=== PATIENT | female | born 1995 | race Caucasian/White ===

== ENCOUNTER 2016-11-12 11:07 | Emergency (ER) | payer OTHER ==
[~2016-11-12] VITALS: Ht 162.6 cm; Wt 117.9 kg
[~2016-11-12 11:07] MED LIST: ACETAMINOPHEN500 M4 PO; ARIPIPRAZOLE5 M1 PO; CIPRO 500MG TA500 MG PO; CYCLOBENZAPRINE5 M2 PO; EXCEDRIN TENSI1 EACH PO; FIORICET 325 MG1 TAB PO; FIORICET 50-301 EACH PO; FLEXERIL10 MG PO; FLUOXETINE HCL20 M2 PO; FLUTICASONE PRO16 GM NASB; HYDROXYZINE HCL50 MG PO; IBUPROFEN800 M1 PO; MEDROL DOSEPAK1 PAC PO; MEDROL4 M2 PO; MIRENA1 EACH; MOBIC15 M1 PO; MOTRIN 600 MG600 MG PO; NEXIUM40 M1 PO; NEXPLANON68 MG SC; NORCO 325 MG-51 TAB PO; PREDNISONE 20MG20 MG PO; PYRIDIUM200 MG PO; TRAMADOL HCL50 M1 PO; TRAMADOL50 MG PO; VERAMYST27.5 MCG/A; VICODIN 5-3001 EACH PO; VICODIN5-300 PO; VISTARIL25 MG PO; VISTARIL50 MG PO; ZOFRAN ODT4 MG PO; ZOFRAN4 M2 PO; [UNRECOGNIZED DRUG - CODE]
--- NOTE | 2016-11-12 12:55 | ED INFLUENZA/URI COMPLAINT ---
History of Present Illness General Chief Complaint: General Adult Stated Complaint: FLU SYMPTOMS; SENT FROM PRIMARY Source: patient, family, old records Exam Limitations: no limitations Vital Signs & Intake/Output Vital Signs & Intake/Output Vital Signs Date Time Temp Pulse Resp B/P Pulse O2 O2 Flow FiO2 Ox Delivery Rate 11/12 1427 100.2 80 22 112/64 97 Room Air 11/12 1337 100.6 98 18 100/52 95 Room Air 11/12 1232 102.0 95 20 130/60 11/12 1125 100.8 11/12 1117 100.8 156 20 122/70 100 Room Air Allergies Coded Allergies: cashew nut (Severe, ANAPHALACTIC - JUST CASHEW BUTTER CAUSES ANAPHYLAXIS ) milk (Severe, MOUTH BLISTERS 07/30/16) Sulfa (Sulfonamide Antibiotics) (Intermediate, SWELLING 07/30/16) metoclopramide (From REGLAN) (Intermediate, HIVES AND TWITCHING 07/30/16) naproxen (Intermediate, SWELLING 07/30/16) Reconcile Medications Aripiprazole 5 MG TABLET 1 TAB PO DAILY MENTAL HEALTH (Reported) Ergocalciferol (Vitamin D2) (Vitamin D2) 50,000 UNIT CAPSULE 1 CAP PO QTUES SUPPLEMENT (Reported) Esomeprazole (Nexium) 40 MG CAPSULE.DR 1 CAP PO DAILY GASTRIC ULCERS ( Reported) Ferrous Sulfate 325 MG (65 MG IRON) TABLET 1 TAB PO DAILY SUPPLEMENT ( Reported) Fluoxetine HCl 20 MG CAPSULE 1 CAP PO DAILY MENTAL HEALTH (Reported) Hydrocodone/Acetaminophen (Vicodin 5-300 MG Tablet) 5 MG-300 MG TABLET 1 TAB PO PRN TMJ (Reported) Ibuprofen 800 MG TABLET 1 TAB PO PRN HEADACHES (Reported) Ibuprofen 600 MG TABLET 1 TAB PO Q6PRN PRN pain, fever with food Meloxicam 15 MG TABLET 1 TAB PO TMJ (Reported) Ondansetron (Zofran Odt) 4 MG TAB.RAPDIS 1 TAB SL TID PRN nausea Oseltamivir Phosphate (Tamiflu) 75 MG CAPSULE 1 CAP PO BID influenza Triage Note: C/O COUGH WITH ACHING ALL OVER, FEVER, CHILLS, SINCE YESTERDAY. STATES HER SON WAS SEEN HERE YESTERDAY, DXD WITH FLU AND PNEUMONIA. Triage Nurses Notes Reviewed? yes Onset: 1 day Duration: day(s):, constant, continues in ED Timing: recent history Severity: moderate Prior Episodes/Possible Cause: illness exposure No Modifying Factors: none LMP (ages 10-50): unknown : No Patient currently breastfeeds: No HPI: Son ill with influenza over the weekend. 1 day prior to admission patient developed fever chills decreased appetite nausea vomiting bodyaches palpitations. She denies chest pain abdominal pain dysuria rash bleeding. Past History Travel History Traveled to [place] past 21 day No Medical History Any Pertinent Medical History? 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 Yes Review of Systems Review of Systems Constitutional: Reports: see HPI, chills, fever, malaise, weakness. EENTM: Reports: see HPI, nasal congestion. Respiratory: Reports: see HPI, cough. Cardiovascular: Reports: see HPI, palpitations. GI: Reports: see HPI, nausea, vomiting. Genitourinary: Reports: no symptoms. Musculoskeletal: Reports: no symptoms. Skin: Reports: no symptoms. Neurological/Psychological: Reports: no symptoms. Hematologic/Endocrine: Reports: no symptoms. Immunologic/Allergic: Reports: no symptoms. All Other Systems: Reviewed and Negative Physical Exam Physical Exam General Appearance: well developed/nourished, alert, awake, anxious, moderate distress Head: atraumatic, normal appearance Eyes: Bilateral: normal appearance, PERRL, EOMI. Ears, Nose, Throat: nasal congestion, dry mucous membranes Neck: normal inspection, supple, full range of motion, trachea midline, lymphadenopathy (R), lymphadenopathy (L) Respiratory: normal breath sounds, chest non-tender, no respiratory distress, quiet respiration, lungs clear Cardiovascular: regular rate/rhythm, normal peripheral pulses, tachycardia, norml femoral pulses equa Peripheral Pulses: 4+ carotid (R), 4+ carotid (L) Gastrointestinal: normal bowel sounds, soft, non-tender, no organomegaly Back: normal inspection, normal range of motion Extremities: normal inspection, normal capillary refill, normal range of motion, no edema Neurologic/Psych: no motor/sensory deficits, awake, alert, oriented x 3, normal gait, normal mood/affect, 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 Skin: intact, normal color, warm/dry Lymphatic: adenopathy Core Measures Severe Sepsis Present: No Septic Shock Present: No Progress Differential Diagnosis: influenza, otitis, pneumonia, pharyngitis Plan of Care: Orders Procedure Date/time Status EKG 11/12 1215 Active RAPID VIRAL INFLUENZA A 11/12 1119 Complete VIRAL CULTURE 11/12 1119 Active Laboratory Tests 11/12/16 1119: Virus Culture Pending Initial ED EKG: normal axis, normal intervals, normal p-waves, normal QRS complex, normal sinus rhythm, no ST T wave changes Departure Departure Time of Disposition: 1430 Disposition: HOME OR SELF CARE Condition: Stable Clinical Impression Primary Impression: Influenza Referrals: BLANCHE MOREJON (PCP/Family) Departure Forms: Customer Survey General Discharge Information Prescriptions: Current Visit Scripts Oseltamivir Phosphate (Tamiflu) 1 CAP PO BID #10 CAP Ondansetron (Zofran Odt) 1 TAB SL TID PRN nausea #15 TAB Ibuprofen 1 TAB PO Q6PRN PRN pain, fever #50 TAB with food
[2016-11-12] MEDS ORDERED: VITAMIN D250000 UNIT PO (13:16)
[2016-11-12] MEDS ORDERED: FERROUS SULFAT325 M3 PO (13:17)
[2016-11-12] MEDS ORDERED: IBUPROFEN800 M1 PO (13:19)
[2016-11-12] MEDS ORDERED: VICODIN 5-3001 EACH PO (13:19)
[2016-11-12] MEDS ORDERED: MELOXICAM15 M1 PO (13:19)
[2016-11-12 14:27] VITALS: BP 112/64
[2016-11-12] MEDS ORDERED: TAMIFLU75 M1 PO (14:31)
[2016-11-12] MEDS ORDERED: ZOFRAN ODT4 M1 SL (14:31)
[2016-11-12] MEDS ORDERED: IBUPROFEN600 M1 PO (14:31)
== END 2016-11-12 14:54 ==
LOC: ERH 11:07
DX: J11.1 Influenza due to unidentified influenza virus with other respiratory manifestations (principal)
CPT/HCPCS: 87804; 87804-59; 93005; 93010; 96361; 96374; 96375; J1885; J2405

== ENCOUNTER 2016-12-29 18:29 | Emergency (ER) | payer OTHER ==
[~2016-12-29] VITALS: Ht 162.6 cm; Wt 120.2 kg
[~2016-12-29 18:29] MED LIST changes: +FERROUS SULFAT325 M3 PO; +IBUPROFEN600 M1 PO; +MELOXICAM15 M1 PO; +TAMIFLU75 M1 PO; +VITAMIN D250000 UNIT PO; +ZOFRAN ODT4 M1 SL
--- NOTE | 2016-12-29 19:38 | ED GENERAL ADULT ---
History of Present Illness General Chief Complaint: General Adult Stated Complaint: RIGHT SHOULDER PAIN, FLANK PAIN, 3 WKS PREG Source: patient Exam Limitations: no limitations Vital Signs & Intake/Output Vital Signs & Intake/Output Vital Signs Date Time Temp Pulse Resp B/P Pulse O2 O2 Flow FiO2 Ox Delivery Rate 12/30 2203 96.7 80 18 134/57 99 Room Air 12/29 2041 98.3 88 16 149/84 97 Room Air 12/29 2033 Room Air 12/29 1841 97.1 118 20 124/86 98 Room Air ED Intake and Output 12/30 0000 12/29 1200 Intake Total Output Total Balance Patient 265 lb Weight Allergies Coded Allergies: cashew nut (Severe, ANAPHALACTIC - JUST CASHEW BUTTER CAUSES ANAPHYLAXIS ) milk (Severe, MOUTH BLISTERS 12/29/16) Sulfa (Sulfonamide Antibiotics) (Intermediate, SWELLING 12/29/16) metoclopramide (From REGLAN) (Intermediate, HIVES AND TWITCHING 12/29/16) naproxen (Intermediate, SWELLING 12/29/16) Reconcile Medications Aripiprazole 5 MG TABLET 1 TAB PO DAILY MENTAL HEALTH (Reported) Bupropion HCl (Bupropion XL) 150 MG TAB.ER.24H 1 TAB PO DAILY MENTAL HEALTH ( Reported) Doxylamine/Pyridoxine HCl (You Dr 10-10 MG Tablet) 10 MG-10 MG TABLET.DR 2 TAB PO QPM PRN NAUSEA Ergocalciferol (Vitamin D2) (Vitamin D2) 50,000 UNIT CAPSULE 1 CAP PO QTUES SUPPLEMENT (Reported) Esomeprazole (Nexium) 40 MG CAPSULE.DR 1 CAP PO DAILY GASTRIC ULCERS ( Reported) Ferrous Sulfate 325 MG (65 MG IRON) TABLET 1 TAB PO DAILY SUPPLEMENT ( Reported) Pnv95/Ferrous Fumarate/FA ( Tablet) 28 MG IRON-800 MCG TABLET 1 TAB PO DAILY SUPPLEMENT (Reported) Triage Note: TRIAGE: PT TO ER C/C R SHOULDER PAIN AND L BACK/FLANK PAIN. ONSET TODAY. CONSTANT SINCE ONSET. +N/+V/-D. LNBM THIS MORNING. REPORTS INCREASED URINARY FREQUENCY X 2 WKS AND DYSURIA THAT STARTED TODAY. LMP 12/04/2016. HAD HOME TEST DONE FRIDAY WHICH WAS POSITIVE. . PLANS TO CALL DR GRIMM OFFICE TOMORROW. Triage Nurses Notes Reviewed? yes Onset: Gradual Duration: constant Timing: single episode today Injury Environment: home Severity: moderate Severity Numbers: 5 : Yes Patient currently breastfeeds: No HPI: Patient is a 21-year-old female who presents emergency room stating that she has had a nonproductive cough for the past 3 days and today she woke up with right- sided anterior chest wall pain that is made worse with deep INHILATION AND upper extremity movements and coughing. Patient denies any fever chills shortness of breath or hemoptysis sore throat. Patient also states that she woke up this morning and has had left-sided paralumbar muscular back pain that is made worse with LUMBAR spine movements and lower extremity movements. Patient took ibuprofen with minimal relief of symptoms. Patient did take home test recently LAST WEEK showing test to confirm in positive , patient took these tests because she was having mild nausea and vomiting episodes last week and was concerned of .. Patient currently denies any fevers chills leg swelling nausea vomiting abdominal pain dysuria hematuria vaginal bleeding or vaginal discharge. Patient is able tolerate by mouth Denies any passage of tissue Denies any history of DVT PE hemoptysis leg swelling recent travel recent surgery or oral contraceptive use (KHAI HOOVER) Past History Travel History Traveled to [place] past 21 day No Medical History Any Pertinent Medical History? 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 No (KHAI HOOVER) Review of Systems Review of Systems Constitutional: Reports: no symptoms. EENTM: Reports: no symptoms. Respiratory: Reports: see HPI, cough. Denies: hemoptysis, short of breath. Cardiovascular: Reports: see HPI, chest pain. GI: Reports: no symptoms, nausea. Denies: abdominal pain. Genitourinary: Reports: no symptoms. Musculoskeletal: Reports: see HPI, back pain. Skin: Reports: no symptoms. Neurological/Psychological: Reports: no symptoms. Hematologic/Endocrine: Reports: no symptoms. Immunologic/Allergic: Reports: no symptoms. All Other Systems: Reviewed and Negative (KHAI HOOVER) Physical Exam Physical Exam General Appearance: no apparent distress, obese Comments: HEENT: Normal EENT exam, extraocular motion intact, no nystagmus. Pupils equally round and reactive to light and accommodation. Nose is atraumatic. External auditory canal and Tympanic membranes clear. Pharynx normal. No swelling or edema. Neck: Supple, no lymphadenopathy, normal range of motion without pain or tenderness Back: Normal inspection full active range of motion noted with pain to the left lateral aspect of her back. Moderate point tenderness noted to lateral paralumbar muscular region, no central spinous tenderness Cardiovascular: Regular rate and rhythms no murmurs rubs or gallops, normal JVP Respiratory: right anterior chest wall point tenderness noted normal inspectionespiratory distress.breath sounds clear to auscultation bilaterally Abdomen: Soft, nontender nondistended, no appreciable organomegaly. Normal bowel sounds. No ascites Extremity: No edema, no calf tenderness to palpation, normal and equal pulses. Bilateral upper extremity and lower extremity myotomes dermatomes intact Neuro: Alert oriented x3, motor sensory normal, Skin: No appreciable rash on exposed skin, skin is warm and dry. Psych: Mood and affect is normal, memory and judgment is normal. Core Measures ACS in differential dx? No CVA/TIA Diagnosis: No Severe Sepsis Present: No Septic Shock Present: No (KHAI HOOVER) Progress Differential Diagnoses I considered the following diagnoses in my evaluation of the patient: [ , ectopic , threatened , PE, DVT, costochondritis, PTX, lumbar strain, kidney stone, appendicitis,] Plan of Care: Orders Procedure Date/time Status D-DIMER 12/29 2052 Complete Add-on Test (ER Only) 12/29 2030 Active HUMAN BETA HCG TITRE 12/29 1957 Complete HUMAN BETA HCG SCREEN 12/29 1937 Complete URINE 12/29 1852 Complete URINALYSIS 12/29 1852 Complete Laboratory Tests 12/29/16 2100: D-Dimer < 200 12/29/161957: Beta HCG, Quant 110.8, Total Beta HCG POSITIVE 12/29/161853: Urine Color YEL, Urine Clarity CLEAR, Urine pH 6.5, Ur Specific Williams 1.010, Urine Protein NEG, Urine Ketones NEG, Urine Nitrite NEG, Urine Bilirubin NEG, Urine Urobilinogen 0.2, Ur Leukocyte Esterase TRACE H, Ur Microscopic SEDIMENT EXAMINED, Urine RBC RARE, Urine WBC 3-5 H, Ur Epithelial Cells MANY H, Urine Hemoglobin NEG, Urine Glucose NEG, Urine Test NEGATIVE PERC ZERO Patient has reproducible chest wall point tenderness on exam and reproducible left-sided lateral muscular point tenderness with lumbar spine movements. No CVA tenderness no abdominal pain no respiratory distress CLEAR lungs auscultation Patient currently is in no apparent distress however did have negative urine however. Positive beta hCG screen. Patient has nontender abdomen. Patient had negative d-dimer essentially ruling out pulmonary embolism. Due to history of present illness and exam findings patient has reproducible pain upon deep inhalation and superficial point tenderness to the right chest wall and left lateral muscular back region. I suspect costochondritis and lumbar strain patient was given a prescription of a repeat beta hCG titer in 2 days and patient will follow-up with her established DRILLING MANAGER Dr. Orozco this week There is no concern at this time of ectopic or appendicitis. No concerns of DVT or PE Discussed disposition plan with Dr. Oliveros who agrees (KHAI HOOVER) Initial ED EKG: none (KHAI HOOVER) Departure Departure Disposition: HOME OR SELF CARE Condition: Stable Clinical Impression Primary Impression: Chest wall pain Secondary Impressions: Low back pain Referrals: BLANCHE MOREJON (PCP/Family) Additional Instructions: As discussed begin icing the area directly 20 minutes every 2 hours. BEGIN Over -the-counter Tylenol for pain and inflammation.. If no better in 5 days follow- up with your primary care doctor. Follow-up tomorrow AND make an appointment for your DRILLING MANAGER Dr. Orozco. In 2 days please go to your local lab facility to receive a second repeat beta HCG Quant this will be sent your primary DRILLING MANAGER.. If symptoms worsen return to emergency room. BEGIN The prescription OF DICLEGIS as directed for nausea. Prescriptions are waiting at [facility] pharmacy Departure Forms: Customer Survey General Discharge Information Prescriptions: Current Visit Scripts Doxylamine/Pyridoxine HCl (Diclegis Dr 10-10 MG Tablet) 2 TAB PO QPM PRN NAUSEA #20 TAB (KHAI HOOVER) PA/MEDICINE TEACHER Co-Sign Statement Statement: ED Attending supervision documentation- [x] I saw and evaluated the patient. I have also reviewed all the pertinent lab results and diagnostic results. I agree with the findings and the plan of care as documented in the PA's/MEDICINE TEACHER's documentation. [] I have reviewed the ED Record and agree with the PA's/MEDICINE TEACHER's documentation. [] Additions or exceptions (if any) to the PAs/MEDICINE TEACHER's note and plan are summarized below: [] (JASWINDER CARRASCO,NO [place]) Critical Care Note Critical Care Note Critical Care Time: non-applicable (UZMA MEHTA,KHAI)
[2016-12-29] MEDS ORDERED: KETOROLAC TROME10 M1 PO (20:13)
[2016-12-29] MEDS ORDERED: BUPROPION XL150 MG PO (21:11)
[2016-12-29] MEDS ORDERED: PRENATAL TABLE1 EAC4 PO (21:11)
[2016-12-29] MEDS ORDERED: DICLEGIS DR 101 EACH PO (22:03)
[2016-12-29 22:04] VITALS: BP 134/57
== END 2016-12-29 22:08 ==
LOC: ERH 18:29
DX: O99.89 Other specified diseases and conditions complicating pregnancy, childbirth and the puerperium (principal); R07.89 Other chest pain; M54.5 Low back pain; Z3A.00 Weeks of gestation of pregnancy not specified
CPT/HCPCS: 81001; 81025; 96372; J1885

== ENCOUNTER 2017-01-17 13:34 | Emergency (ER) | payer OTHER ==
[~2017-01-17] VITALS: Ht 162.6 cm; Wt 117.9 kg
[~2017-01-17 13:34] MED LIST changes: +BUPROPION XL150 MG PO; +DICLEGIS DR 101 EACH PO; +KETOROLAC TROME10 M1 PO; +PRENATAL TABLE1 EAC4 PO
--- NOTE | 2017-01-17 14:30 | ED GI/GU/ABDOMINAL COMPLAINT ---
History of Present Illness General Chief Complaint: Abdominal Pain/Flank Pain Stated Complaint: ABD PAIN, 6 WEEKS PREG Source: patient Exam Limitations: no limitations Vital Signs & Intake/Output Vital Signs & Intake/Output Vital Signs Date Time Temp Pulse Resp B/P Pulse O2 O2 Flow FiO2 Ox Delivery Rate 01/17 1636 97 01/17 1634 96.1 01/17 1632 96.1 80 20 112/60 100 Room Air 01/17 1338 97.7 106 16 121/77 98 Room Air Allergies Coded Allergies: cashew nut (Severe, ANAPHALACTIC - JUST CASHEW BUTTER CAUSES ANAPHYLAXIS ) milk (Severe, MOUTH BLISTERS 12/29/16) Sulfa (Sulfonamide Antibiotics) (Intermediate, SWELLING 12/29/16) metoclopramide (From REGLAN) (Intermediate, HIVES AND TWITCHING 12/29/16) naproxen (Intermediate, SWELLING 12/29/16) Reconcile Medications Aripiprazole 5 MG TABLET 1 TAB PO DAILY MENTAL HEALTH (Reported) Bupropion HCl (Bupropion XL) 150 MG TAB.ER.24H 1 TAB PO DAILY MENTAL HEALTH ( Reported) Doxylamine/Pyridoxine HCl (Diceligis Dr 10-10 MG Tablet) 10 MG-10 MG TABLET.DR 2 TAB PO QPM PRN NAUSEA Ergocalciferol (Vitamin D2) (Vitamin D2) 50,000 UNIT CAPSULE 1 CAP PO QTUES SUPPLEMENT (Reported) Esomeprazole (Nexium) 40 MG CAPSULE.DR 1 CAP PO DAILY GASTRIC ULCERS ( Reported) Ferrous Sulfate 325 MG (65 MG IRON) TABLET 1 TAB PO DAILY SUPPLEMENT ( Reported) Pnv95/Ferrous Fumarate/FA ( Tablet) 28 MG IRON-800 MCG TABLET 1 TAB PO DAILY SUPPLEMENT (Reported) Triage Note: PT STATSE SHE IS HAVING PAIN IN THE MIDDLE OF HER STOMACH TO HER LEFT SIDE. PT STATES IT DOESN'T FEEL LIKE NORMAL STRETCHING PAIN. PT DOES NOT REMEMBER INJURING HERSELF. Triage Nurses Notes Reviewed? yes ? Y Is pt currently ? No Onset: Abrupt Duration: constant Timing: single episode today Quality/Severity: cramping, moderate Severity Numbers: 5 Location: suprapubic Radiation: no radiation Activities at Onset: none HPI: Patient is a approximate 6 weeks who presents to emergency room with a 5 hour history of acute onset of suprapubic abdominal cramping pain. Patient did not take any medications prior to arrival. Patient does state that throughout her known the past 4 weeks she has been complaining of persistent nausea however no emesis has occurred patient was able tolerate by mouth prior to arrival. Patient denies any fever, chills, chest pain hemoptysis vomiting, leg swelling, vaginal bleeding vaginal discharge or passes of tissue. Denies any dysuria or hematuria. Past History Travel History Traveled to [place] past 21 day No Medical History Any Pertinent Medical History? 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 No Review of Systems Review of Systems Constitutional: Reports: no symptoms. EENTM: Reports: no symptoms. Respiratory: Reports: no symptoms. Cardiovascular: Reports: no symptoms. GI: Reports: see HPI, abdominal pain. Genitourinary: Reports: no symptoms. Musculoskeletal: Reports: no symptoms. Skin: Reports: no symptoms. Neurological/Psychological: Reports: no symptoms. Hematologic/Endocrine: Reports: no symptoms. Immunologic/Allergic: Reports: no symptoms. All Other Systems: Reviewed and Negative Physical Exam Physical Exam General Appearance: no apparent distress, comfortable Gastrointestinal: normal bowel sounds, soft Comments: Well-developed well-nourished person in no acute distress HEENT: Normal EENT exam, Neck: Supple, no lymphadenopathy, normal range of motion without pain or tenderness Back: Nontender, no CVA tenderness. Cardiovascular: Regular rate and rhythms no murmurs rubs or gallops, normal JVP Respiratory: Chest nontender. No respiratory distress.breath sounds clear to auscultation bilaterally Extremity: No edema, no calf tenderness to palpation, normal and equal pulses. Neuro: Alert oriented x3, motor sensory normal, Skin: No appreciable rash on exposed skin, skin is warm and dry. Psych: Mood and affect is normal, memory and judgment is normal. Core Measures ACS in differential dx? No Severe Sepsis Present: No Septic Shock Present: No Progress Differential Diagnosis: AAA, AMI, appendicitis, biliary colic, bowel obstruction , colon cancer, cholecystitis, diverticulitis, ectopic , endometritis, esophageal varices, gastritis, hepatitis, hernia, hemorrhoids, ischemic bowel, inflamm bowel dis, intrauterine , kidney stone, Moira-Willis tear, ovarian cyst, ovarian torsion, pancreatitis, PID/cervicitis, peptic ulcer, PUD/ GERD, perforated viscous, SBO, threatened AB, UTI/pyelo Plan of Care: Orders Procedure Date/time Status URINALYSIS 01/17 1457 Complete HUMAN BETA HCG TITRE 01/17 1457 Complete COMPREHENSIVE METABOLIC PANEL 01/17 1457 Complete CBC WITHOUT DIFFERENTIAL 01/17 1457 Complete Laboratory Tests 01/17/17 1505: Anion Gap 11, Estimated GFR > 60, BUN/Creatinine Ratio 14.3, Glucose 80, Calcium 8.9, Total Bilirubin 1.0, AST 22, ALT 32, Alkaline Phosphatase 73, Total Protein 7.0, Albumin 4.1, Globulin 2.9, Albumin/Globulin Ratio 1.4, Beta HCG, Quant 85203.0, CBC w Diff NO MAN DIFF REQ, RBC 4.40, MCV 85.0, MCH 27.9, RDW 15.3 H, MPV 8.9, Gran % 73.4, Lymphocytes % 18.6 L, Monocytes % 5.8, Eosinophils % 1.3, Basophils % 0.9, Absolute Granulocytes 5.9, Absolute Lymphocytes 1.5, Absolute Monocytes 0.5, Absolute Eosinophils 0.1, Absolute Basophils 0.1, PUBS MCHC 32.8 L, Urine Color YEL, Urine Clarity HAZY H, Urine pH 7.0, Ur Specific Moody 1.015, Urine Protein NEG, Urine Ketones NEG, Urine Nitrite NEG, Urine Bilirubin NEG, Urine Urobilinogen 1.0, Ur Leukocyte Esterase SMALL H, Ur Microscopic SEDIMENT EXAMINED, Urine WBC 1-3 H, Ur Epithelial Cells MANY H, Urine Bacteria FEW H, Urine Hemoglobin NEG, Urine Glucose NEG Patient currently resting comfortably no apparent distress and of vaginal bleeding or discharge or passes of tissue. Patient has confirmed ultrasound findings of IUP. I gave report to patient. Patient was strongly advised to follow up with WOOD BOX MAK[employer] Dr. Orozco discussed disposition plan with Dr. Maria who agrees. Patient was able tolerate by mouth upon discharge (KHAI HOOVER) Diagnostic Imaging: Viewed by Me: Ultrasound. Radiology Impression: SEE COMMENTS Initial ED EKG: none Comments: PATIENT: PABLO AMES PRESENT AGE: 21 PATIENT ACCOUNT NO: [id number] : 95 LOCATION: [facility] ORDERING PHYSICIAN: KHAI MEHTA SERVICE DATE: 01/17/17-8956 EXAM TYPE: US - US TRANSVAG EXAMINATION: ULTRASOUND FIRST TRIMESTER CLINICAL INFORMATION: Abdominal pain. Recent . Assess for ectopic.. COMPARISON: CT scan of the abdomen and pelvis 09/17/2016. An IUD was noted within the endometrial cavity.. TECHNIQUE: Transabdominal and transvaginal imaging of the pelvis was performed. FINDINGS: A normal gravid uterus is identified. No ectopic gestational sac is seen. A single living intrauterine gestation is identified with a crown-rump length of 0.7 cm corresponding to 6 weeks 5 days. A pole is noted, and a yolk sac is seen. This is concordant with the age by dates of 6 weeks 2 days for an LEXY between 09/07/2017 and 09/10/2017. A normal heart rate of 115 beats per minute is identified. Both ovaries are of normal size and echogenicity: The right measures 3.7 x 2.7 x 2.3 cm, for a volume of 11.9 mL. There is a 2.0 x 1.3 x 1.4 cm cyst. The left measures 2.4 x 1.7 x 1.5 for a volume of 3.2 mL. There is no pelvic free fluid. IMPRESSION: 1. Normal single living intrauterine gestation with an LEXY of between 09/07/2017 and 09/10/2017. 2. No ectopic is demonstrated. 3. There is a 2 cm cyst in the right ovary. Departure Departure Disposition: HOME OR SELF CARE Condition: Stable Clinical Impression Primary Impression: Abdominal pain during Referrals: BLANCHE MOREJON (PCP/Family) Additional Instructions: As discussed continue [id number] Tylenol if needed for pain. Follow-up on Friday with your WOOD BOX MAKER doctor Ernesto. Continue your previously prescribed antinausea medications if needed. If symptoms worsen return to emergency room Departure Forms: Customer Survey General Discharge Information
[2017-01-17 15:19] LABS: ABSOLUTE BASOPHIL COUNT 0.1 /CUMM (0.0-0.2); ABSOLUTE EOSINOPHIL COUNT 0.1 /CUMM (0.0-0.7); ABSOLUTE GRANULOCYTE CT 5.9 /CUMM (1.4-6.5); ABSOLUTE LYMPH COUNT 1.5 /CUMM (1.2-3.4); ABSOLUTE MONOCYTE COUNT 0.5 /CUMM (0.10-0.60); BASOPHIL % 0.9 % (0.0-2.0); EOSINOPHIL % 1.3 % (0-5); GRANULOCYTE % 73.4 % (42.2-75.2); HEMATOCRIT 37.4 % (37-47); MEAN CORPUSCULAR HGB 27.9 PG (27.0-31.0); MEAN CORPUSCULAR HGB CONC 32.8 G/DL (33.0-37.0); MEAN PLATELET VOLUME 8.9 FL (7.4-10.4); PLATELET COUNT 191 /CUMM (130-400); RBC DISTRIBUTION WIDTH 15.3 % (11.5-14.5)
--- NOTE | 2017-01-17 15:56 | ULTRASOUND REPORT ---
EXAMINATION: ULTRASOUND FIRST TRIMESTER CLINICAL INFORMATION: Abdominal pain. Recent . Assess for ectopic.. COMPARISON: CT scan of the abdomen and pelvis 09/17/2016. An IUD was noted within the endometrial cavity.. TECHNIQUE: Transabdominal and transvaginal imaging of the pelvis was performed. FINDINGS: A normal gravid uterus is identified. No ectopic gestational sac is seen. A single living intrauterine gestation is identified with a crown-rump length of 0.7 cm corresponding to 6 weeks 5 days. A pole is noted, and a yolk sac is seen. This is concordant with the age by dates of 6 weeks 2 days for an LEXY between 09/07/2017 and 09/10/2017. A normal heart rate of 115 beats per minute is identified. Both ovaries are of normal size and echogenicity: The right measures 3.7 x 2.7 x 2.3 cm, for a volume of 11.9 mL. There is a 2.0 x 1.3 x 1.4 cm cyst. The left measures 2.4 x 1.7 x 1.5 for a volume of 3.2 mL. There is no pelvic free fluid. IMPRESSION: 1. Normal single living intrauterine gestation with an LEXY of between 09/07/2017 and 09/10/2017. 2. No ectopic is demonstrated. 3. There is a 2 cm cyst in the right ovary.
[2017-01-17 16:32] VITALS: BP 112/60
== END 2017-01-17 16:30 ==
LOC: ERH 13:34
PROVIDERS: Physician Assistant
DX: O26.91 Pregnancy related conditions, unspecified, first trimester (principal); R10.30 Lower abdominal pain, unspecified
CPT/HCPCS: 76817; 81001

== ENCOUNTER 2017-01-22 14:55 | Emergency (ER) | payer OTHER ==
[~2017-01-22] VITALS: Ht 162.6 cm; Wt 117.9 kg
[2017-01-22 15:18] VITALS: BP 151/78
--- NOTE | 2017-01-22 15:44 | ED GI/GU/ABDOMINAL COMPLAINT ---
History of Present Illness General Chief Complaint: Abdominal Pain/Flank Pain Stated Complaint: RT SIDE ABDOMINAL PAIN, 7 WEEKS PREG Source: patient Exam Limitations: no limitations Vital Signs & Intake/Output Vital Signs & Intake/Output Vital Signs Date Time Temp Pulse Resp B/P B/P Pulse O2 O2 Flow FiO2 Mean Ox Delivery Rate 01/22 1518 97.8 63 18 151/78 99 Room Air Allergies Coded Allergies: cashew nut (Severe, ANAPHALACTIC - JUST CASHEW BUTTER CAUSES ANAPHYLAXIS ) milk (Severe, MOUTH BLISTERS 12/29/16) Sulfa (Sulfonamide Antibiotics) (Intermediate, SWELLING 12/29/16) metoclopramide (From REGLAN) (Intermediate, HIVES AND TWITCHING 12/29/16) naproxen (Intermediate, SWELLING 12/29/16) Reconcile Medications Aripiprazole 5 MG TABLET 1 TAB PO DAILY MENTAL HEALTH (Reported) Bupropion HCl (Bupropion XL) 150 MG TAB.ER.24H 1 TAB PO DAILY MENTAL HEALTH ( Reported) Doxylamine/Pyridoxine HCl (You [place] 10-10 MG Tablet) 10 MG-10 MG TABLET.DR 2 TAB PO QPM PRN NAUSEA Ergocalciferol (Vitamin D2) (Vitamin D2) 50,000 UNIT CAPSULE 1 CAP PO QTUES SUPPLEMENT (Reported) Esomeprazole (Nexium) 40 MG CAPSULE.DR 1 CAP PO DAILY GASTRIC ULCERS ( Reported) Ferrous Sulfate 325 MG (65 MG IRON) TABLET 1 TAB PO DAILY SUPPLEMENT ( Reported) Pnv95/Ferrous Fumarate/FA ( Tablet) 28 MG IRON-800 MCG TABLET 1 TAB PO DAILY SUPPLEMENT (Reported) Triage Note: PT TO TRIAGE WITH C/O RLQ ABD PAIN 8/10 SINCE YESTERDAY, +MULTIPLE VOMITING YESTERDAY, NAUSEA TODAY, PT DENIES DIARRHEA, LBM 2DAYS AGO WNL. PT 7 WEEKS , . Triage Nurses Notes Reviewed? yes ? Y Is pt currently ? No Onset: Abrupt Duration: day(s): (1) Timing: multiple episodes today Quality/Severity: mild, moderate No Modifying Factors: none Associated Symptoms: nausea/vomiting HPI: 21 year old female presents to the ER with chief complaint of rlq pain that started yesterday morning at 4 am. She then proceeded to vomit all day long yesterday. No appointment yet with an OBgyn doctor. Today she was able to able to eat macaroni and cheese. Last BM on friday. No diarrhea. No vaginal bleeding or discharge. Patient is 7 weeks . She had a documented IUP diagnosed 5 days ago. Past History Travel History Traveled to [place] past 21 day No Medical History Any Pertinent Medical History? see below for history Neurological: headaches EENT: NONE Cardiovascular: hypertension Respiratory: NONE Gastrointestinal: NONE Hepatic: NONE Renal: frequent uti's Musculoskeletal: chronic back pain, fracture, r arm, l foot fx Psychiatric: borderline adhd borderline depression Endocrine: NONE Blood Disorders: anemia Cancer(s): NONE SEVERITY OF ILLNESS COORDINATOR/Reproductive: yeast infections, ovarian cyst Surgical History Surgical History: episiotomy Psychosocial History What is your primary language Irish Tobacco Use: Never used Family History Hx Contributory? No Review of Systems Review of Systems Constitutional: Denies: chills, fever. EENTM: Reports: no symptoms. Respiratory: Denies: cough, short of breath. Cardiovascular: Denies: chest pain, palpitations. GI: Reports: nausea, vomiting. Denies: abdominal pain. Genitourinary: Reports: no symptoms. Musculoskeletal: Reports: no symptoms. Skin: Reports: no symptoms. Neurological/Psychological: Reports: no symptoms. Hematologic/Endocrine: Denies: bruising, bleeding. Immunologic/Allergic: Denies: splenectomy. All Other Systems: Reviewed and Negative Physical Exam Physical Exam General Appearance: well developed/nourished, alert, awake Head: atraumatic, normal appearance Eyes: Bilateral: normal appearance, PERRL, EOMI. Ears, Nose, Throat, Mouth: hearing grossly normal, moist mucous membrane Neck: normal inspection, supple, full range of motion Respiratory: normal breath sounds, chest non-tender, no respiratory distress Cardiovascular: regular rate/rhythm Peripheral Pulses: 2+ radial (R), 2+ radial (L) Gastrointestinal: soft, guarding, tenderness (RLQ) Extremities: normal range of motion Neurologic/Psych: no motor/sensory deficits, awake, alert, oriented x 3 Skin: intact, normal color, warm/dry Core Measures ACS in differential dx? No Severe Sepsis Present: No Septic Shock Present: No Progress Differential Diagnosis: intrauterine , hyperemesis gravidarum Plan of Care: Orders Procedure Date/time Status URINALYSIS 01/22 1701 Complete HUMAN BETA HCG TITRE 01/22 1611 Complete COMPREHENSIVE METABOLIC PANEL 01/22 1611 Complete CBC WITHOUT DIFFERENTIAL 01/22 1611 Complete Laboratory Tests 01/22/17 1705: Urine Color YEL, Urine Clarity CLEAR, Urine pH 6.0, Ur Specific [place] 1.025, Urine Protein NEG, Urine Ketones NEG, Urine Nitrite NEG, Urine Bilirubin NEG, Urine Urobilinogen 0.2, Ur Leukocyte Esterase NEG, Ur Microscopic EXAM NOT REQUIRED, Urine Hemoglobin NEG, Urine Glucose NEG 01/22/17 1612: Anion Gap 14, Estimated GFR > 60, BUN/Creatinine Ratio 14.3, Glucose 73, Calcium 9.0, Total Bilirubin 1.0, AST 34, ALT 30, Alkaline Phosphatase 52, Total Protein 7.3, Albumin 4.1, Globulin 3.2, Albumin/Globulin Ratio 1.3, Beta HCG, Quant 79757.0, CBC w Diff NO MAN DIFF REQ, RBC 4.41, MCV 85.3, MCH 28.0, RDW 15.1 H, MPV 9.1, Gran % 71.2, Lymphocytes % 22.1, Monocytes % 5.3, Eosinophils % 1.1, Basophils % 0.3, Absolute Granulocytes 6.7 H, Absolute Lymphocytes 2.1, Absolute Monocytes 0.5, Absolute Eosinophils 0.1, Absolute Basophils 0, PUBS MCHC 32.9 L saline, zofran, tylenol ordered. labs ordered. phenergen ordered for persistent nausea. 18:14 pm patient reports improved nausea, feels she can now go home. (DAISY CAMPOS,SHALINI) Initial ED EKG: none Departure Departure Time of Disposition: 1812 Disposition: HOME OR SELF CARE Condition: Stable Clinical Impression Primary Impression: related nausea and vomiting, antepartum Referrals: BLANCHE MOREJON (PCP/Family) SANDY WRAY MD Additional Instructions: Take your medications as directed. Make sure to drinkk plenty of fluids. Please follow-up with Dr. Mcgee in the office tomorrow or Friday. Return as needed. Departure Forms: Customer Survey General Discharge Information
[2017-01-22 16:21] LABS: ABSOLUTE BASOPHIL COUNT 0 /CUMM (0.0-0.2); ABSOLUTE EOSINOPHIL COUNT 0.1 /CUMM (0.0-0.7); ABSOLUTE GRANULOCYTE CT 6.7 /CUMM (1.4-6.5); ABSOLUTE LYMPH COUNT 2.1 /CUMM (1.2-3.4); ABSOLUTE MONOCYTE COUNT 0.5 /CUMM (0.10-0.60); BASOPHIL % 0.3 % (0.0-2.0); EOSINOPHIL % 1.1 % (0-5); GRANULOCYTE % 71.2 % (42.2-75.2); HEMATOCRIT 37.5 % (37-47); MEAN CORPUSCULAR HGB CONC 32.9 G/DL (33.0-37.0); MEAN CORPUSCULAR VOLUME 85.3 FL (81.0-99.0); MEAN PLATELET VOLUME 9.1 FL (7.4-10.4); PLATELET COUNT 181 /CUMM (130-400); RBC DISTRIBUTION WIDTH 15.1 % (11.5-14.5); RED BLOOD CELL CT 4.41 /CUMM (4.20-5.40); WHITE BLOOD CELL COUNT 9.5 /CUMM (4.8-10.8)
== END 2017-01-22 18:18 ==
LOC: ERH 14:55
PROVIDERS: Emergency Medicine
DX: O21.9 Vomiting of pregnancy, unspecified (principal)
CPT/HCPCS: 81003; 96374; 96375; J0131; J0780; J2405

== ENCOUNTER 2017-03-28 17:11 | Emergency (ER) | payer OTHER ==
[~2017-03-28] VITALS: Ht 162.6 cm; Wt 112.5 kg
--- NOTE | 2017-03-28 18:04 | ED GENERAL ADULT ---
History of Present Illness General Chief Complaint: Abdominal Pain/Flank Pain Stated Complaint: LOWER ABD PAIN RADIATING UP +16WEEKS Source: patient Exam Limitations: no limitations Vital Signs & Intake/Output Vital Signs & Intake/Output Vital Signs Date Time Temp Pulse Resp B/P B/P Pulse O2 O2 Flow FiO2 Mean Ox Delivery Rate 03/28 1954 98.8 71 16 107/55 100 Room Air 03/28 1745 Room Air 03/28 1736 96.7 92 18 126/73 96 Room Air Allergies Coded Allergies: cashew nut (Severe, ANAPHALACTIC - JUST CASHEW BUTTER CAUSES ANAPHYLAXIS ) milk (Severe, MOUTH BLISTERS 12/29/16) Sulfa (Sulfonamide Antibiotics) (Intermediate, SWELLING 12/29/16) metoclopramide (From REGLAN) (Intermediate, HIVES AND TWITCHING 12/29/16) naproxen (Intermediate, SWELLING 12/29/16) Reconcile Medications Aripiprazole 5 MG TABLET 1 TAB PO DAILY MENTAL HEALTH (Reported) Bupropion HCl (Bupropion XL) 150 MG TAB.ER.24H 1 TAB PO DAILY MENTAL HEALTH ( Reported) Doxylamine/Pyridoxine HCl (You Dr 10-10 MG Tablet) 10 MG-10 MG TABLET.DR 2 TAB PO QPM PRN NAUSEA Ergocalciferol (Vitamin D2) (Vitamin D2) 50,000 UNIT CAPSULE 1 CAP PO QTUES SUPPLEMENT (Reported) Esomeprazole (Nexium) 40 MG CAPSULE.DR 1 CAP PO DAILY GASTRIC ULCERS ( Reported) Ferrous Sulfate 325 MG (65 MG IRON) TABLET 1 TAB PO DAILY SUPPLEMENT ( Reported) Pnv95/Ferrous Fumarate/FA ( Tablet) 28 MG IRON-800 MCG TABLET 1 TAB PO DAILY SUPPLEMENT (Reported) Triage Note: PT STATES SHE IS HAVING LOWER ABD PAIN RADIATING UP TO HER LEFT FLANK AREA. PT STATES THIS HAS HAPPEND YESTERDAY WHEN SHE HAD GOTTEN A MIGRAINE PT STATES SHE HAD SHARP PAIN TODAY AND SHE WENT AND RESTED BUT THE PAIN CONT. PT STATES SHE HAS BEEN DRINKING PLENTY OF FLUIDS. Triage Nurses Notes Reviewed? yes Onset: Abrupt Duration: hour(s): Timing: single episode today Severity: severe : Yes Patient currently breastfeeds: No HPI: 21yo 16 week female presents to ED complaining of intermittent abdominal cramping. She states that yesterday she had a headache which resolved and then today she began feeling intense cramping. Cramping is located in supra pubic area with radiation to LUQ. Cramping occurs every 7 minutes and then resolves. With her first patient went into labor several times , about 5-6, first occuring at about 15 weeks. She was given PO and IV medications during these times and eventually delivered her son 3 weeks late. Patient states she has been under a lot of stress recenly with family issues. She also states frequent nausea and almost daily vomiting during this which she did not experience in her first . Patient denies vaginal discharge or bleeding, fevers, chills, chest pain, SOB, dysuria. (SULMA NEELY PA-C) Past History Travel History Traveled to [place] past 21 day No Medical History Any Pertinent Medical History? see below for history Neurological: headaches EENT: NONE Cardiovascular: hypertension Respiratory: NONE Gastrointestinal: NONE Hepatic: NONE Renal: frequent uti's Musculoskeletal: chronic back pain, fracture, r arm, l foot fx Psychiatric: borderline adhd borderline depression Endocrine: NONE Blood Disorders: anemia Cancer(s): NONE RAMP JOCKEY/Reproductive: yeast infections, ovarian cyst Surgical History Surgical History: episiotomy Psychosocial History What is your primary language Faroese Tobacco Use: Never used ETOH Use: denies use Illicit Drug Use: denies illicit drug use Family History Hx Contributory? No (SULMA NEELY PA-C) Review of Systems Review of Systems Constitutional: Reports: no symptoms. EENTM: Reports: no symptoms. Respiratory: Reports: no symptoms. Cardiovascular: Reports: no symptoms. GI: Reports: see HPI. Genitourinary: Reports: see HPI. Musculoskeletal: Reports: no symptoms. Skin: Reports: no symptoms. Neurological/Psychological: Reports: see HPI. Hematologic/Endocrine: Reports: no symptoms. Immunologic/Allergic: Reports: no symptoms. All Other Systems: Reviewed and Negative (SULMA NEELY PA-C) Physical Exam Physical Exam General Appearance: well developed/nourished, no apparent distress, alert, awake Head: atraumatic, normal appearance Eyes: Bilateral: normal appearance, EOMI. Ears, Nose, Throat: hearing grossly normal Neck: normal inspection, supple, full range of motion Respiratory: normal breath sounds, no respiratory distress, lungs clear Cardiovascular: regular rate/rhythm Gastrointestinal: normal bowel sounds, soft, non-tender, no organomegaly, obese Back: normal inspection, normal range of motion Extremities: normal inspection, normal range of motion Neurologic/Psych: awake, alert, oriented x 3 Skin: intact, normal color, warm/dry Comments: PELVIC EXAM: Cervical os closed, no cervical motion tenderness, no blood, scant amount of white discharge in vault Core Measures ACS in differential dx? No CVA/TIA Diagnosis: No Severe Sepsis Present: No Septic Shock Present: No (FLORINDA HARRIS,SULMA) Progress Differential Diagnoses I considered the following diagnoses in my evaluation of the patient: [UTI, labor, uterine contraction, appendicitis, diverticulitis, cholecystitis, ectopic , threatened , missed ] Plan of Care: Orders Procedure Date/time Status TRICHOMONAS 03/28 2024 Complete POTASSIUM HYDROXIDE (AUGUST) 03/28 2024 Complete GENITAL CULTURE 03/28 2024 Active CHLAMYDIA-GC DNA PROBE 03/28 1824 Active URINE 03/28 1815 Complete COMPREHENSIVE METABOLIC PANEL 03/28 1815 Complete CBC WITHOUT DIFFERENTIAL 03/28 1815 Complete URINALYSIS 03/28 1810 Complete Laboratory Tests 03/28/171832: Anion Gap 9, Estimated GFR > 60, BUN/Creatinine Ratio 14.3, Glucose 74, Calcium 9.4, Total Bilirubin 0.8, AST 17, ALT 27, Alkaline Phosphatase 55, Total Protein 6.6, Albumin 3.8, Globulin 2.8, Albumin/Globulin Ratio 1.4, CBC w Diff NO MAN DIFF REQ, RBC 4.12 L, MCV 84.3, MCH 28.5, RDW 14.3, MPV 9.8, Gran % 76.7 H, Lymphocytes % 16.5 L, Monocytes % 5.5, Eosinophils % 0.7, Basophils % 0.6, Absolute Granulocytes 7.3 H, Absolute Lymphocytes 1.6, Absolute Monocytes 0.5, Absolute Eosinophils 0.1, Absolute Basophils 0.1, PUBS MCHC 33.7 03/28/171823: Urine Test POSITIVE 03/28/171823: Urine Color YEL, Urine Clarity CLEAR, Urine pH 6.0, Ur Specific [place] >= 1.030 , Urine Protein TRACE H, Urine Ketones NEG, Urine Nitrite NEG, Urine Bilirubin NEG, Urine Urobilinogen 1.0, Ur Leukocyte Esterase NEG, Ur Microscopic SEDIMENT EXAMINED, Ur Epithelial Cells FEW, Urine Bacteria FEW H, Urine Mucus MOD H, Urine Hemoglobin NEG, Urine Glucose NEG Microbiology 03/28 2045 GENITAL: GC DNA Probe - CAN Cancelled: WRONG SWAB SENT 03/28 2045 GENITAL: Chlamydia DNA Probe (JONES) - CAN Cancelled: WRONG SWAB SENT 03/28 2045 GENITAL: AUGUST Preparation - COMP 03/28 2045 GENITAL: Trichomonas Preparation - COMP 03/28 2045 GENITAL: Genital Culture - RECD 03/28 1824 URINE ROUT: GC DNA Probe - RECD 03/28 1824 URINE ROUT: Chlamydia DNA Probe (JONES) - RECD Patient is sitting in bed comfortably, she is in no acute distress, her vital signs are stable, she is non toxic appearing. She is on her phone while waiting for lab results. doppler show HR bwtween 155-160. Patient given IVFs. SHe is not nausous in the ED and has not vomiting while here. She has not noticed any spotting or vaginal bleeding. She states her cramping pain has decreased in frequency to every 15 minutes now. The patient was discussed with Dr. Aquino. OBGYN consult pending. The patient was further discussed with Dr. Ewing. The patient will follow up with her OBGYN as soon as possible. She was educated that these symptoms may correlate with a miscarriage. The patient will return with any worsening symptoms or concerns. The patient is in agreement with the plan of care. Discussed patient's case with OBGYN over the phone. Requesting pelvic exam to determine in os is closed prior to discharge. Patient consents to pelvic exam. Exam reveals os closed. Cultures sent. Patient will call her OBGYN on friday to make appointment. (SULMA NEELY PA-C) Initial ED EKG: none (SULMA NEELY PA-C) Departure Departure Disposition: HOME OR SELF CARE Condition: Stable Clinical Impression Primary Impression: Threatened miscarriage Referrals: BLANCHE MOREJON (PCP/Family) Additional Instructions: Follow up with your OBGYN, call to make an appointment on Friday. Take tylenol as prescribed as needed for pain. Return with worsening symptoms or concerns, worseing cramping, vaginal bleeding. Your urine and pelvic cultures have been sent to the lab, we will call you if results are positive. Departure Forms: Customer Survey General Discharge Information (SULMA NEELY PA-C) PA/HAND STAMPER Co-Sign Statement Statement: ED Attending supervision documentation- [x] I saw and evaluated the patient. I have also reviewed all the pertinent lab results and diagnostic results. I agree with the findings and the plan of care as documented in the PA's/HAND STAMPER's documentation. [x] I have reviewed the ED Record and agree with the PA's/HAND STAMPER's documentation. [] Additions or exceptions (if any) to the PAs/HAND STAMPER's note and plan are summarized below: [] (DAISY CAMPOS,SHALINI) Critical Care Note Critical Care Note Critical Care Time: non-applicable (SULMA NEELY PA-C)
[2017-03-28 18:43] LABS: ABSOLUTE BASOPHIL COUNT 0.1 /CUMM (0.0-0.2); ABSOLUTE EOSINOPHIL COUNT 0.1 /CUMM (0.0-0.7); ABSOLUTE GRANULOCYTE CT 7.3 /CUMM (1.4-6.5); ABSOLUTE LYMPH COUNT 1.6 /CUMM (1.2-3.4); ABSOLUTE MONOCYTE COUNT 0.5 /CUMM (0.10-0.60); BASOPHIL % 0.6 % (0.0-2.0); EOSINOPHIL % 0.7 % (0-5); GRANULOCYTE % 76.7 % (42.2-75.2); HEMATOCRIT 34.7 % (37-47); MEAN CORPUSCULAR HGB 28.5 PG (27.0-31.0); MEAN CORPUSCULAR HGB CONC 33.7 G/DL (33.0-37.0); MEAN CORPUSCULAR VOLUME 84.3 FL (81.0-99.0); MEAN PLATELET VOLUME 9.8 FL (7.4-10.4); PLATELET COUNT 141 /CUMM (130-400); RBC DISTRIBUTION WIDTH 14.3 % (11.5-14.5); RED BLOOD CELL CT 4.12 /CUMM (4.20-5.40); WHITE BLOOD CELL COUNT 9.5 /CUMM (4.8-10.8)
[2017-03-28 19:54] VITALS: BP 107/55
== END 2017-03-28 21:05 ==
LOC: ERH 17:11
PROVIDERS: Physician Assistant
DX: O20.0 Threatened abortion (principal)
CPT/HCPCS: 87070; 81001; 81025; 87491; 87591